=== PATIENT | female | born 1980 | race Caucasian/White ===

== ENCOUNTER → 2018-01-16 14:48 | Outpatient (REF) | payer OTHER, SELFPAY ==
[2018-01-16 19:17] LABS: TSH (W/Ref FT4) 0.89 uIU/mL (0.358-3.74)
== END ==
LOC: NCHCN 14:48
PROVIDERS: PCP Family Medicine; Visit Provider Family Medicine
DX: E05.90 Thyrotoxicosis, unspecified without thyrotoxic crisis or storm (principal)
CPT/HCPCS: 84443

== ENCOUNTER 2020-02-25 09:01 | Outpatient (REF) | payer OTHER, SELFPAY ==
[2020-02-25 19:39] LABS: Hemoglobin A1C 4.9 % (<5.7)
== END 2020-02-25 09:21 ==
LOC: NCHCN 09:01
PROVIDERS: PCP Family Medicine; Visit Provider Family Medicine
DX: Z00.00 Encounter for general adult medical examination without abnormal findings (principal); Z13.1 Encounter for screening for diabetes mellitus
CPT/HCPCS: 83036

== ENCOUNTER 2021-09-11 13:44 | Outpatient (REF) | payer OTHER, SELFPAY ==
--- NOTE | 2021-09-11 09:30 | PAPFT_PTH ---
PATIENT: Gerda Novoa LOC: [facility]#:[id number] AGE/SX: 41/F ROOM: RE09/11/[address]: Comfort Thomas : 1980 BED: DIS: 09/11/2021 SPEC #: [id number] RECD: 09/11/21 17:30 STATUS: MICHI REJeanine #: [id number] CHANDA: 09/11/21 09:[address]: Comfort Thomas DEPT: [facility] Cytology RECD BY: Mehnaz Calderon Tissues: 1 - CX/ENDOCX FOR PAP SMEARS Procedures: PAP THIN PREP/[facility] Screening HPV DNA PROBE Comments: [id number]
== END 2021-09-11 13:45 | disposition home or self-care (01) ==
LOC: NCHCN 13:44
PROVIDERS: PCP Family Medicine; Visit Provider Family Medicine
DX: Z01.419 Encounter for gynecological examination (general) (routine) without abnormal findings (principal)
CPT/HCPCS: 88142; 87624

== ENCOUNTER 2023-03-13 09:02 | Outpatient (REF) | payer OTHER, SELFPAY ==
[2023-03-13 17:19] LABS: Calculated LDL 89 mg/dL (<100); Cholesterol 147 mg/dL (<200); HDL Cholesterol 48 mg/dL (40-60); TSH (W/Ref FT4) 0.67 uIU/mL (0.36-3.74); Triglyceride 51 mg/dL (<150)
[2023-03-14 11:11] LABS: HIV-1/2 Ag & Ab Screen Negative (Negative)
[2023-03-14 13:41] LABS: Hepatitis C Ab w Rflx HCV PCR Negative (Negative)
== END 2023-03-13 09:03 | disposition home or self-care (01) ==
LOC: NCHCN 09:02
PROVIDERS: PCP Family Medicine; Visit Provider Family Medicine
DX: Z13.1 Encounter for screening for diabetes mellitus (principal); Z13.220 Encounter for screening for lipoid disorders; Z11.59 Encounter for screening for other viral diseases; Z00.00 Encounter for general adult medical examination without abnormal findings; Z86.39 Personal history of other endocrine, nutritional and metabolic disease
CPT/HCPCS: 80061; 86803; 87389; 83036; 84443

== ENCOUNTER → 2023-04-04 02:34 | Outpatient (CLI) | payer OTHER, SELFPAY ==
--- NOTE | 2023-04-04 08:32 | DI.MAMMO_ITS ---
Exam(s) MAMMO SCREENING EXAM: MAMMO SCREENING CLINICAL HISTORY: SCREENING, Z12.39, BASELINE MAMMO TECHNIQUE: Mammograms were interpreted according to the usual protocol including computer analysis w [email or web address] CAD system, tomosynthesis and C-view imaging. COMPARISON: No exams were available for comparison. Baseline examination. FINDINGS: The breasts are composed of scattered fibroglandular densities, Breast Density category B. No suspicious masses or suspicious microcalcifications are seen. No skin thickening or abnormal axillary lymph nodes are seen. IMPRESSION: BI-RADS Category 1, Negative mammogram Yearly screening mammography is recommended. Breast Density - Category B, scattered fibroglandular densities. A negative radiographic report should not delay biopsy if a dominant or clinically suspicious mass is present. Up to ten percent of cancers are not identified on mammography. A negative report may reinforce clinical impression. Adenosis and dense breasts may obscure an underlying neoplasm. False positive reports average 6 to 10%. Patient will receive a letter notifying them of these results.
== END ==
PROVIDERS: PCP Family Medicine; Visit Provider Family Medicine
DX: Z12.31 Encounter for screening mammogram for malignant neoplasm of breast (principal)
CPT/HCPCS: 77063; 77067